=== PATIENT | female | born 1980 | race Two or more races ===

== ENCOUNTER 2023-08-07 12:30 | Emergency (ER) | payer OTHER ==
[~2023-08-07] VITALS: Ht 165.1 cm; Wt 72.6 kg
[2023-08-07] MEDS ORDERED: AMLODIPINE BESYL5 MG PO (13:21)
[2023-08-07] MEDS ORDERED: KETOROLAC TROMETHAMINE 30 MG VIAL IV ONE (13:45)
[2023-08-07 14:46] LABS: HEMATOCRIT 46.9 % (36.0-45.00); HEMOGLOBIN 17.8 g/dL (12.0-15.00); MEAN CELL VOLUME 97.1 fL (80.00-100.00); MEAN CORPUSCULAR HEMOGLOBIN 36.8 pg (27.00-32.0); MEAN CORPUSCULAR HGB CONC 37.8 g/dl (32.0-36.0); PLATELET COUNT 214 K/uL (150-450); RED BLOOD COUNT 4.83 M/uL (4.00-6.00); RED CELL DISTRIBUTION WIDTH 14.5 % (11.5-14.5)
== END 2023-08-07 15:49 | disposition home or self-care (01) ==
LOC: ER 12:31
PROVIDERS: Emergency Medicine
DX: R07.89 Other chest pain (principal); I10 Essential (primary) hypertension; Z88.8 Allergy status to other drugs, medicaments and biological substances; Z87.891 Personal history of nicotine dependence; Z20.822 Contact with and (suspected) exposure to COVID-19